=== PATIENT | female | born 1995 | race Caucasian/White ===

== ENCOUNTER 2017-01-20 19:49 | Emergency (ER) | payer BC, MEDICAID ==
[2017-01-20 20:05] VITALS: BP 138/85; BMI 29.9
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
[2017-01-20 22:59] LABS: BILIRUBIN,URINE NEGATIVE (NEGATIVE); BLOOD/HEMOGLOBIN,URINE NEGATIVE (NEGATIVE); GLUCOSE, URINE NEGATIVE (NEGATIVE); KETONES,URINE NEGATIVE (NEGATIVE); LEUKOCYTE ESTERASE ,URINE 1+ (NEGATIVE); NITRITES,URINE NEGATIVE (NEGATIVE); PROTEIN,URINE NEGATIVE (NEGATIVE); UROBILINOGEN,URINE NORMAL (NORMAL)
[2017-01-20 23:06] LABS: APPEARANCE,URINE CLEAR (CLEAR); BACTERIA,URINE TRACE /HPF (NEGATIVE); COLOR,URINE YELLOW (YELLOW); RBC,URINE NONE SEEN /HPF (NEGATIVE); SQUAMOUS EPITHELIAL CELL,UR RARE /HPF (NEGATIVE)
[2017-01-20 23:07] LABS: SERUM PREGNANCY TEST, QUAL NEGATIVE <10 mIU/mL
== END 2017-01-20 23:51 | disposition home or self-care (01) ==
LOC: ER 19:49
DX: N91.2 Amenorrhea, unspecified (principal); R10.84 Generalized abdominal pain
CPT/HCPCS: 36415; 81001; 84703; 99282

== ENCOUNTER 2017-02-12 01:18 | Emergency (ER) | payer OTHER ==
[2017-02-12 01:29] VITALS: BMI 29.9
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
[2017-02-12 02:49] LABS: SERUM PREGNANCY TEST, QUAL NEGATIVE <10 mIU/mL
[2017-02-12] MEDS ORDERED: SILVADENE TOP NR (03:00)
[2017-02-12] MEDS ORDERED: TORADOL 60 MG VIAL IM ONE (04:36)
[2017-02-12] MEDS ORDERED: SILVADENE ONE (04:44)
[2017-02-12] MEDS ORDERED: TORADOL 60 MG VIAL ONE (04:44)
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
[2017-02-12 05:39] VITALS: BP 124/76
[2017-02-12] MEDS ORDERED: SOLU-Medrol 125 MG VIAL ONE (05:40)
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
== END 2017-02-12 05:40 | disposition home or self-care (01) ==
LOC: ER 01:18
PROC: 2W28X4Z Dressing of Right Upper Extremity using Bandage (ICD-10-PCS; principal; 2017-02-12)
PROC: 2W29X4Z Dressing of Left Upper Extremity using Bandage (ICD-10-PCS; principal; 2017-02-12)
DX: Z04.3 Encounter for examination and observation following other accident (principal); M54.2 Cervicalgia; R51 Headache; M79.651 Pain in right thigh; T22.212A Burn of second degree of left forearm, initial encounter; T24.211A Burn of second degree of right thigh, initial encounter; V49.9XXA Car occupant (driver) (passenger) injured in unspecified traffic accident, initial encounter
CPT/HCPCS: 16020; 36415; 70450; 72125; 73552; 84703; 96372; 99283; J1885; J2930

== ENCOUNTER 2017-08-21 23:12 | Emergency (ER) | payer OTHER ==
[2017-08-21 23:19] VITALS: BP 124/63; BMI 32.3
[2017-08-21] MEDS ORDERED: TYLENOL 500 MG TAB EXTRA STRENGTH PO ONE ×2 (23:51)
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
[2017-08-21 23:57] LABS: BILIRUBIN,URINE NEGATIVE (NEGATIVE); BLOOD/HEMOGLOBIN,URINE 2+ (NEGATIVE); GLUCOSE, URINE NEGATIVE (NEGATIVE); KETONES,URINE NEGATIVE (NEGATIVE); LEUKOCYTE ESTERASE ,URINE NEGATIVE (NEGATIVE); NITRITES,URINE NEGATIVE (NEGATIVE); PROTEIN,URINE NEGATIVE (NEGATIVE); UROBILINOGEN,URINE 1+ (NORMAL)
[2017-08-22 00:10] LABS: APPEARANCE,URINE CLEAR (CLEAR); COLOR,URINE YELLOW (YELLOW)
[2017-08-22 00:11] LABS: BACTERIA,URINE NEGATIVE /HPF (NEGATIVE); RBC,URINE 0-2 /HPF (NONE SEEN); SQUAMOUS EPITHELIAL CELL,UR FEW /HPF (NEGATIVE)
== END 2017-08-22 01:37 | disposition home or self-care (01) ==
LOC: ER 23:12
DX: O46.8X1 Other antepartum hemorrhage, first trimester (principal); O20.8 Other hemorrhage in early pregnancy; Z3A.10 10 weeks gestation of pregnancy
CPT/HCPCS: 36415; 81001; 84702; 86900; 86901; 99283; 99284